=== PATIENT | male | born 2000 | race African-American/Black ===

== ENCOUNTER 2021-02-23 08:40 | Emergency (ER) | payer MEDICAID, SELFPAY ==
--- NOTE | ~2021-02-23 | US_ITS ---
EXAMINATION: US scrotum doppler DATE: 02/23/2021 10:06 INDICATION: Abdominal pain that radiates to the testes TECHNIQUE: Testicular sonogram utilizing grayscale and Doppler COMPARISON: None. FINDINGS: The right testis measures 4.7 x 3.1 x 2.2 cm. The left testis measures 4.4 x 2.7 x 2.6 cm. Symmetric normal grayscale appearance to both testes. There is normal vascular flow to both testes. The right e pididymis is normal with normal vascular flow. 1.3 cm anechoic epididymal cyst. The left epididymis i s otherwise normal with normal vascular flow. There is no varicocele or hydrocele. IMPRESSION: 1. 1.3 similar left epididymal cyst. Otherwise normal scrotal ultrasound. Reviewed, dictated and finalized at location A.
[2021-02-23 08:53] VITALS: BP 129/61; PULSE 58; RESP 18; TEMP 36.4; O2SAT 100
[2021-02-23 09:19] LABS: Add Urine Microscopic? NO; Appearance Urine Clear (Clear); Bilirubin Urine Negative (Negative); Blood Urine Negative (Negative); Color Urine Yellow (Yellow); Glucose Urine UA Negative (Negative); Ketones Urine Negative (Negative); Leukocyte Esterase Ur Negative LEU/UL (Negative); Nitrate Urine Negative (Negative); Protein Urine Negative (Negative); Specific Grav Ur 1.024 (1.001-1.035); Urobilinogen Urine Negative mg/dL (<2.0)
[2021-02-23 09:27] LABS: Alanine Aminotransferase 52 U/L (4-50); Albumin Level 4.6 g/dL (3.5-5.1); Alkaline Phosphatase 39 U/L (38-126); Anion Gap 5 mmol/L (8-16); Aspartate Amino Transferase 49 U/L (17-59); Bilirubin,Total 0.4 mg/dL (0.2-1.3); Blood Urea Nitrogen 19 mg/dL (9-20); Carbon Dioxide 29 mmol/L (22-30); Chloride 104 mmol/L (98-107); Estimated CRCL calculation 164 ml/min; Estimated Glomerular Filt Rate > 60; Glucose 99 mg/dL (75-110); Lipase 262 U/L (23-300); Potassium 4.5 mmol/L (3.4-5.0); Sodium 138 mmol/L (137-145)
[2021-02-23 09:35] LABS: Basophils Percent Auto 0.4 % (0.2-1.2); Eosinophils Absolute Auto 0.1 K/mm3 (0-0.3); Eosinophils Percent Auto 1.5 % (0-4.4); Hematocrit 45.4 % (42.0-52.0); Immature Granulocyte Absolute 0.02 K/mm3 (0.00-0.031); Immature Granulocyte Percent A 0.4 % (0-0.5); Lymphocytes Absolute Auto 2.25 K/mm3 (0.9-3.2); Lymphocytes Percent Auto 47.6 % (18.3-44.2); Mean Corpuscular HGB Conc 30.8 g/dl (32-36); Mean Corpuscular Hemoglobin 25.7 pg (26-34); Mean Corpuscular Volume 83.5 fl (80-100); Mean Platelet Volume 11.8 fl (7.4-10.4); Monocytes Absolute Auto 0.6 K/mm3 (0.1-0.6); Monocytes Percent Auto 11.6 % (2.6-8.5); Neutrophils Absolute Auto 1.8 K/mm3 (1.3-6.7); Neutrophils Percent Auto 38.5 % (45.5-73.1); Platelet Count Result 186 k/mm3 (150-375); Red Blood Count 5.44 M/mm3 (4.6-6.20); Red Cell Distribution Width 14.3 % (11.5-14.5); White Blood Count 4.7 K/mm3 (4.5-10.0)
[2021-02-23] MEDS: KETOROLAC 30 MG/ML VIAL (*BKC) IV PUSH (10:37)
--- NOTE | 2021-02-23 10:58 | ED.ABDPAIN ---
HPI - Abdominal Pain General Chief Complaint: Abdominal Pain Stated Complaint: abdominal pain/testicular pain Time Seen by Provider: 02/23/21 10:07 Source: patient and family Mode of arrival: ambulatory Limitations: no limitations History of Present Illness HPI narrative: Patient is a 21-year-old male who presents to emergency department for evaluation of left testicular pain that is been present for 1 year notes that he has a small bump on the left testicle patient denies any injury or trauma patient notes that this has been present for 1 year patient denies any recent infection notes that he was incarcerated and was recently released and wanted to have it checked out patient does not have a primary care at this time Related Data Home Medications Medication Instructions Recorded Confirmed No Home Medications 02/23/21 02/23/21 Allergies Allergy/AdvReac Type Severity Reaction Status Date / Time No Known Allergies Allergy Verified 02/23/21 08:55 Review of Systems Review of Systems: All systems reviewed & are unremarkable except as noted in HPI and below PMFSH Social History Social History Gender identity (if verbalized by the patient): Male Exam Narrative: Exam Narrative: GENERAL: Well-appearing, well-nourished, and in no acute distress. HEAD: Normocephalic, atraumatic. EYES: PERRLA and EOMI. ENT: Nares clear, no rhinorrhea or epistaxis. Mucous membranes moist. CHEST: Clear to auscultation. No respiratory distress. No wheezes rales or rhonchi HEART: Regular rate and rhythm. No murmur heard. Normal peripheral pulses. ABDOMEN: Soft, nontender, nondistended MALE GENITOURINARY: Patient with mild tenderness of the epididymis of the left testicle no other abnormalities EXTREMITIES: Normal range of motion. No edema. SKIN: Warm, dry, no rash. NEURO: No focal deficits. Alert and oriented x3. Cranial nerves II through XII grossly intact. PSYCH: Normal mood and affect. Course Course Emergency Course: Patient evaluated in the emergency department no high risk changes in the blood work or imaging will be referred to primary care and urology for further evaluation patient agrees with this plan patient is afebrile nontoxic-appearing no distress Vital Signs Vital signs: Vital Signs Temperature 97.5 F L 02/23/21 08:53 Pulse Rate 58 L 02/23/21 08:53 Respiratory Rate 18 02/23/21 08:53 Blood Pressure 129/61 02/23/21 08:53 Pulse Oximetry 100 02/23/21 08:53 Temperature 97.5 F L 02/23/21 08:53 Pulse Rate 58 L 02/23/21 08:53 Respiratory Rate 18 02/23/21 08:53 Blood Pressure 129/61 02/23/21 08:53 Pulse Oximetry 100 02/23/21 08:53 MDM - Abdominal Pain MDM Narrative Medical decision making narrative: Patient evaluated the emergency department ABCs and vital signs intact and stable given referrals for follow-up provided with reasons to return small cyst on the testicle is the likely etiology of his concern patient is aware of the findings and agrees to follow-up as instructed Lab Data Result diagrams: 02/23/21 09:08 02/23/21 09:08 Labs: Lab Results 02/23/21 02/23/21 02/23/21 Range/Units 09:08 09:08 09:08 WBC 4.7 (4.5-10.0) K/mm3 RBC 5.44 (4.6-6.20) M/mm3 Hgb 14.0 (14.0-18.0) g/dL Hct 45.4 (42.0-52.0) % MCV 83.5 (80-100) fl MCH 25.7 L (26-34) pg MCHC 30.8 L (32-36) g/dl RDW 14.3 (11.5-14.5) % Plt Count 186 (150-375) k/mm3 MPV 11.8 H (7.4-10.4) fl Immature Gran % (Auto) 0.4 (0-0.5) % Neut % (Auto) 38.5 L (45.5-73.1) % Lymph % (Auto) 47.6 H (18.3-44.2) % Treasure % (Auto) 11.6 H (2.6-8.5) % Eos % (Auto) 1.5 (0-4.4) % Baso % (Auto) 0.4 (0.2-1.2) % Lymph # (Auto) 2.25 (0.9-3.2) K/mm3 Treasure # (Auto) 0.6 (0.1-0.6) K/mm3 Eos # (Auto) 0.1 (0-0.3) K/mm3 Baso # (Auto) 0.0 (0.0-0.1) K/mm3 Abs Immat Gran (auto) 0.0
[2021-02-23 11:26] VITALS: BP 144/59; PULSE 59; RESP 16; O2SAT 100
== END 2021-02-23 11:29 | disposition home or self-care (01) ==
PROVIDERS: Emergency Provider Emergency Medicine
DX: N50.3 Cyst of epididymis (principal)
CPT/HCPCS: 36415; 76870; 80053; 81003; 83690; 85025; 93976; 96374; 99284; J1885

== ENCOUNTER 2023-10-04 15:14 | Emergency (ER) | payer SELFPAY ==
--- NOTE | ~2023-10-04 | XR_ITS ---
EXAMINATION: XR chest 1V portable Exam Date/Time: 10/04/2023 16:10 SYSTEM ADMINISTRATION MANAGER HISTORY: wheezing, productive cough Comparison: None. RESULT: Lines, tubes, and devices: None. Lungs and pleura: Clear. Cardiomediastinal silhouette: Normal. Other: No acute osseous or upper abdominal finding. IMPRESSION: No acute cardiopulmonary process. Reviewed, dictated and finalized at location K. EM ADMINISTRATION MANAGER
[2023-10-04 15:15] VITALS: BP 140/100; PULSE 100; RESP 18; TEMP 36.7; O2SAT 98
[2023-10-04 15:44] VITALS: O2SAT 98
[2023-10-04] MEDS: ALBUTEROL SULFATE NEB 2.5 MG/3 ML INH INHALATION (16:05)
[2023-10-04] MEDS: IPRATROPIUM BR 0.02% INH SOLN 0.5 MG/2.5 ML VIAL INHALATION (16:05)
--- NOTE | 2023-10-04 16:10 | ED.GENADULT ---
[facility] General Adult General Chief complaint: Upper Respiratory Infection Stated complaint: cough Time Seen by Provider: 10/04/23 15:32 Source: patient Mode of arrival: ambulatory Limitations: no limitations History of Present Illness HPI narrative: This is a 23-year-old male with no pertinent past PMH who presents to the ED with chief complaint of cough, congestion and chest tightness for the past 5 days. Reports tightness in the central chest but denies pain. Reports he feels like he is wheezing. Denies fevers, chills, sore throat, abdominal pain, nausea, vomiting. Related Data Allergies Allergy/AdvReac Type Severity Reaction Status Date / Time No Known Allergies Allergy Verified 10/04/23 15:46 Review of Systems Review of Systems: All systems as dictated in [facility] Social History Social History Gender identity (if verbalized by the patient): Male Exam Narrative: GENERAL: Well-appearing, well-nourished, and in no acute distress. HEAD: Normocephalic, atraumatic. EYES: PERRLA and EOMI. ENT: Nares clear, no rhinorrhea or epistaxis. Mucous membranes moist. Oropharynx without tonsillar hypertrophy exudate or other lesions. NECK: Supple. No adenopathy or masses. CHEST: No respiratory distress. Faint expiratory wheezes heard bilaterally in the upper lung dickerson. Sats 98% on room air. No accessory muscle use. HEART: Regular rate and rhythm. No murmur heard. Normal peripheral pulses. ABDOMEN: Soft, nontender, nondistended, normal active bowel sounds. MSK: Normal range of motion. No edema. SKIN: Warm, dry, no rash. NEURO: Alert and oriented x3. No focal deficits. PSYCH: Normal mood and affect. Course Vital Signs Vital signs: Vital Signs Temperature 98.1 F 10/04/23 15:15 Pulse Rate 100 10/04/23 15:15 Respiratory Rate 18 10/04/23 15:15 Blood Pressure 140/100 H 10/04/23 15:15 Pulse Oximetry 98 10/04/23 15:15 Temperature 98.1 F 10/04/23 15:15 Pulse Rate 100 10/04/23 15:15 Respiratory Rate 18 10/04/23 15:15 Blood Pressure 140/100 H 10/04/23 15:15 Pulse Oximetry 98 10/04/23 15:44 Oxygen Delivery Room Air 10/04/23 15:44 Medical Decision Making MDM Narrative Medical decision making narrative: This is a 23-year-old male who presents to the ED with viral URI symptoms. Vitals normal. Exam is shows faint wheezing bilaterally but otherwise benign. Saturating well. Are swabs are positive for RSV. X-ray is negative for any acute findings. Symptoms are overall consistent with bronchitis. He improved with breathing treatment here. Albuterol prescription given. Pt will be discharged in stable condition. Return precautions given and supportive measures discussed. Pt is understanding and agreeable with plan for discharge and follow-up with PCP. Vital Signs Vital Signs: Vital Signs Temperature 98.1 F 10/04/23 15:15 Pulse Rate 100 10/04/23 15:15 Respiratory Rate 18 10/04/23 15:15 Blood Pressure 140/100 H 10/04/23 15:15 Pulse Oximetry 98 10/04/23 15:15 Temperature 98.1 F 10/04/23 15:15 Pulse Rate 100 10/04/23 15:15 Respiratory Rate 18 10/04/23 15:15 Blood Pressure 140/100 H 10/04/23 15:15 Pulse Oximetry 98 10/04/23 15:44 Oxygen Delivery Room Air 10/04/23 15:44 Lab Data Labs: Lab Results 10/04/23 Range/Units 15:51 Influenza A (RT-PCR) Negative (Negative) Influenza B (RT-PCR) Negative (Negative) RSV (RT-PCR) Positive A (Negative) SARS-CoV-2 RNA (RT-PCR) Negative (Negative) Discharge Plan Discharge Clinical Impression: Respiratory syncytial virus (RSV) Patient Disposition: Home, Self-Care Condition: Stable Instructions: Antibiotic Form Additional Instructions: Your exam today shows evidence of RSV. It is causing bronchitis. This should get better on its own after a week or so. Prescribing albuterol inhaler
[2023-10-04 16:32] LABS: Influenza A QL RT-PCR Negative (Negative); Influenza B QL RT-PCR Negative (Negative); RSV RNA, RT-PCR Positive (Negative); SARS-CoV-2 RNA PCR Negative (Negative)
== END 2023-10-04 17:41 | disposition home or self-care (01) ==
PROVIDERS: Emergency Provider Physician Assistant
DX: J40 Bronchitis, not specified as acute or chronic (principal); B97.4 Respiratory syncytial virus as the cause of diseases classified elsewhere; Z20.822 Contact with and (suspected) exposure to COVID-19
CPT/HCPCS: 71045; 87637; 94640; 99283